=== PATIENT | male | born 1965 | race Caucasian/White ===

== ENCOUNTER 2021-05-19 15:52 | Emergency (ER) | payer BC ==
[2021-05-19 16:00] VITALS: BP 164/93
--- NOTE | 2021-05-19 16:26 | ED Physician Documentation ---
PD HPI HEENT - Stated complaint Stated Complaint: RIGHT SIDE EAR PX - Chief complaint Chief Complaint: Heent - History obtained from History obtained from: Patient - Additional information Additional information: 2 to 3 days of right ear pain with muffled hearing. He had an online doctor's visit and it sounds like they felt like it was probably otitis externa and was started on Ciprodex. He has been on that for about 24 hours and has not improved in fact has gotten a little worse. No systemic symptoms or URI symptoms. Review of Systems Constitutional: denies: Fever, Chills Nose: denies: Rhinorrhea / runny nose Throat: denies: Sore throat Cardiac: denies: Chest pain / pressure, Palpitations PD PAST MEDICAL HISTORY - Allergies Allergies/Adverse Reactions: Allergies Allergy/AdvReac Type Severity Reaction Status Date / Time No Known Drug Allergies Allergy Verified 05/19/21 15:59 PD ED PE NORMAL - Vitals Vital signs reviewed: Yes - General General: Alert and oriented X 3, No acute distress - HEENT HEENT: Other (There is discolored cerumen in the right ear canal. Hard to tell if there is external otitis on initial evaluation due to the cerumen. Unable to see TM initially.) - Neck Neck: Supple, no meningeal sign, No bony TTP - Neuro Neuro: Alert and oriented X 3, Normal speech Results - Vitals Vitals: Vital Signs - 24 hr 05/19/21 15:56 Temperature 36.6 C Heart Rate 96 Respiratory 16 Rate Blood Pressure 164/93 H O2 Saturation 99 Oxygen O2 Source Room air Procedures - General procedure General procedure: The cerumen in the right ear canal was removed with a combination of curette and syringe irrigation. PD MEDICAL DECISION MAKING - ED course ED course: After removal of the earwax he was symptom-free. On reexamination after removal of the earwax there is no evidence of external otitis. TM appeared slightly inflamed but without otitis media. Departure - Departure Disposition: 01 Home, Self Care Clinical Impression: Impacted cerumen, right ear Condition: Good Record reviewed to determine appropriate education?: Yes Instructions: ED Earwax Removal Comments: Return as needed for new or worsening symptoms. You can stop the antibiotic eardrops.
== END 2021-05-19 16:36 | disposition home or self-care (01) ==
LOC: ED 15:52
DX: H61.21 Impacted cerumen, right ear (principal)
CPT/HCPCS: 69209; 99281; 99283

== ENCOUNTER 2021-05-22 12:50 | Emergency (ER) | payer BC ==
[2021-05-22] MEDS ORDERED: KETOROLAC 15 MG/ML VIAL IM STA (13:26)
--- NOTE | 2021-05-22 13:26 | ED Physician Documentation ---
PD HPI OPHTHO - Stated complaint Stated Complaint: RT EAR PX - Chief complaint Chief Complaint: Heent - History obtained from History obtained from: Patient - Additional information Additional information: 56-year-old man who was seen here couple days ago for cleanout of the right ear presents with persistent right ear pain since that time. He states that he was told not to use his eardrops that were prescribed via telemedicine, but the pain has been getting worse. Denies fevers, discharge. Does have some muffled hearing. Review of Systems Constitutional: denies: Fever, Chills Ears: reports: Loss of hearing, Ear pain. denies: Drainage/discharge Nose: denies: Rhinorrhea / runny nose PD PAST MEDICAL HISTORY - Past Medical History Past Medical History: Yes Cardiovascular: Hypertension Respiratory: None Neuro: None Endocrine/Autoimmune: None GI: None : None HEENT: None Psych: None Musculoskeletal: None Derm: None - Past Surgical History Past Surgical History: No - Allergies Allergies/Adverse Reactions: Allergies Allergy/AdvReac Type Severity Reaction Status Date / Time No Known Drug Allergies Allergy Verified 05/22/21 13:04 - Social History Does the pt smoke?: No Smoking Status: Never smoker Does the pt drink ETOH?: No Does the pt have substance abuse?: No - Immunizations Immunizations are current?: Yes - POLST Patient has POLST: No PD ED PE NORMAL - Vitals Vital signs reviewed: Yes - General General: Alert and oriented X 3, No acute distress, Well developed/nourished - HEENT HEENT: Atraumatic, PERRL, EOMI, Other (Right external auditory canal with gross purulence and brownish particulate matter. BL TMs clear) - Neuro Neuro: Alert and oriented X 3 - Psych Psych: Normal mood, Normal affect Results - Vitals Vitals: Vital Signs - 24 hr 05/22/21 05/22/21 13:00 13:42 Temperature 36.6 C 36.9 C Heart Rate 96 77 Respiratory 15 14 Rate Blood Pressure 164/95 H 170/91 H O2 Saturation 99 98 Oxygen O2 Source Room air PD MEDICAL DECISION MAKING - ED course ED course: 56-year-old man presented with right ear pain. He was told not to take his antibiotic eardrops but it looks like he does have otitis externa, so I recommended that he continue with Ciprodex. Return precautions given. Patient is visiting from out of town so I told him to follow-up with his primary doctor for referral to ENT when he gets home. Departure - Departure Disposition: Home, Self Care Clinical Impression: Otitis externa Condition: Good Instructions: ED Otitis Externa Comments: You were seen in the emergency department for a right ear infection. Continue to take the antibiotic eardrops and follow-up with ENT when you get back to [place] on . Return to the emergency department if you have any new or worsening symptoms or other concerns. Discharge Date/Time: 05/22/21 13:46
[2021-05-22 13:43] VITALS: BP 170/91
== END 2021-05-22 13:46 | disposition home or self-care (01) ==
LOC: ED 12:50
DX: H60.91 Unspecified otitis externa, right ear (principal); I10 Essential (primary) hypertension
CPT/HCPCS: 96372; 99283